=== PATIENT | female | born 1950 | race Caucasian/White ===

== ENCOUNTER → 2017-08-11 | Outpatient (CLI) | payer MEDICARE, OTHER ==
[~2017-08-11] MED LIST: ASPI81CH; ASPI81CH PO; ATEN50; ATOR20; AZIT250 PO; Bystolic20 MG PO; CALMAGZIN; ENOX100I SC; EZET10; FLECAINIDE ACETATE; HYDCHL25 PO; KLOR-CON; LEVFLO500 PO; LISI5; LOSHYD; METR500 PO; MULVIT; Metoprolol Tar100 MG; OMEGA OIL; OMEP20ER; WARF2; WARF6; [UNRECOGNIZED DRUG - REMARK]
[2017-08-11 15:57] LABS: Source, Urine Clean Catch
[2017-08-11 16:12] LABS: Bilirubin, Urine Neg (Neg); Blood, Urine Neg (Neg); Glucose Qualitative, Urine Neg (Neg); Ketones, Urine Neg (Neg); Leukocyte Esterase, Urine Neg (Neg); Nitrite, Urine Neg (Neg); Protein, Urine Neg (Neg); Specific Gravity, Urine 1.015 (1.003-1.022); Urobilinogen, Urine NORM (Normal)
[2017-08-11 16:35] LABS: Appearance, Urine Clear (Clear); Color, Urine Yellow (P-Yellow)
== END | disposition home or self-care (01) ==
LOC: LAB 10:30 → LAB SHORT 10:30
PROVIDERS: Family Medicine
DX: R31.9 Hematuria, unspecified (principal)
CPT/HCPCS: 81003

== ENCOUNTER 2021-01-06 09:13 | Emergency (ER) | payer OTHER ==
[~2021-01-06] VITALS: Ht 162.6 cm; Wt 97.5 kg
[2021-01-06] MEDS ORDERED: ALBU90OI INH (10:09)
== END 2021-01-06 10:33 | disposition home or self-care (01) ==
LOC: ER 09:13
DX: U07.1 COVID-19 (principal); J12.82 Pneumonia due to coronavirus disease 2019; I10 Essential (primary) hypertension; I48.91 Unspecified atrial fibrillation; Z88.8 Allergy status to other drugs, medicaments and biological substances; Z88.0 Allergy status to penicillin; Z79.899 Other long term (current) drug therapy; Z79.01 Long term (current) use of anticoagulants; Z79.82 Long term (current) use of aspirin
CPT/HCPCS: 99283

== ENCOUNTER 2021-03-19 07:59 | Day surgery (SDC) | payer OTHER ==
[~2021-03-19] VITALS: Ht 160 cm; Wt 102.3 kg
[~2021-03-19 07:59] MED LIST changes: +ALBU90OI INH; +CENTRUM SILVER1 EAC2 PO; +ELIQUIS5 M2 PO; +ERGO50000 PO; +ESTRADIOL1 EAC2 TOP; +GLUCOSAMINE-CH1 EA48 PO; +METF500 PO; +OMEGA-3 1,0501 EACH PO; +POTCHL20ER PO; +PROG100 PO; +Zocor20 MG PO
[2021-03-19] MEDS ORDERED: TESTOSTERONE50 MG PO (08:23)
--- NOTE | 2021-03-19 08:30 | NUR ---
03/19/21 0830 Adonay Stephens CALL LIGHT WITHIN REACH. EYE DROPS AT 0821 PLEDGETT IN AT 0823
== END 2021-03-19 10:09 | disposition home or self-care (01) ==
LOC: ORSCSDS 07:59
PROVIDERS: Ophthalmology
PROC: 08RJ3JZ Replacement of Right Lens with Synthetic Substitute, Percutaneous Approach (ICD-10-PCS; principal; 2021-03-19 09:15)
DX: H25.11 Age-related nuclear cataract, right eye (principal); I10 Essential (primary) hypertension; I48.91 Unspecified atrial fibrillation; Z79.01 Long term (current) use of anticoagulants; G47.33 Obstructive sleep apnea (adult) (pediatric); E11.9 Type 2 diabetes mellitus without complications; E66.01 Morbid (severe) obesity due to excess calories; Z68.41 Body mass index [BMI] 40.0-44.9, adult; Z79.899 Other long term (current) drug therapy
CPT/HCPCS: 82947; J2001; J2250; J3010; J3301; J7040; V2632

== ENCOUNTER 2021-04-09 11:43 | Day surgery (SDC) | payer OTHER ==
[~2021-04-09] VITALS: Ht 160 cm; Wt 101.1 kg
[~2021-04-09 11:43] MED LIST changes: +TESTOSTERONE50 MG PO
--- NOTE | 2021-04-09 12:57 | NUR ---
04/09/21 1257 PETE SNOWDEN TETRACAINE DROP AND PLEDGETT INSERTED BY [facility].PHILLY
== END 2021-04-09 13:41 | disposition home or self-care (01) ==
LOC: ORSCSDS 11:43
PROVIDERS: Ophthalmology
PROC: 08RK3JZ Replacement of Left Lens with Synthetic Substitute, Percutaneous Approach (ICD-10-PCS; principal; 2021-04-09 13:00)
DX: H25.12 Age-related nuclear cataract, left eye (principal); I10 Essential (primary) hypertension; I48.91 Unspecified atrial fibrillation; Z79.01 Long term (current) use of anticoagulants; G47.33 Obstructive sleep apnea (adult) (pediatric); E66.01 Morbid (severe) obesity due to excess calories; Z68.39 Body mass index [BMI] 39.0-39.9, adult; Z79.899 Other long term (current) drug therapy
CPT/HCPCS: J2001; J2250; J3010; J3301; J7040; V2632